=== PATIENT | female | born 1965 | race Caucasian/White ===

== ENCOUNTER 2017-10-15 11:37 | Emergency (ER) | payer OTHER ==
[~2017-10-15] VITALS: Ht 152.4 cm; Wt 79.4 kg
[2017-10-15 11:38] VITALS: Ht 152.4 cm; Wt 79.4 kg
[2017-10-15 16:47] VITALS: BP 137/82
== END 2017-10-15 16:47 | disposition home or self-care (01) ==
LOC: ED 11:37
DX: F41.9 Anxiety disorder, unspecified (principal); Z90.710 Acquired absence of both cervix and uterus; Z88.0 Allergy status to penicillin